=== PATIENT | female | born 2000 | race Two or more races ===

== ENCOUNTER 2023-11-05 09:11 | Outpatient (REF) | payer OTHER, SELFPAY ==
--- NOTE | ~2023-11-05 | US_ITS ---
EXAMINATION: US THYROID CLINICAL INFORMATION: Fatigue. COMPARISON: None available. TECHNIQUE: Linear transducer grayscale and color Doppler examination with attention to the region of the thyroid. FINDINGS: SIZE: Measurements of the thyroid lobes and nodules are given in sagittal, anteroposterior and transverse dimensions respectively. Right Thyroid Lobe: 4.4 x 2.1 x 1.2 cm, volume 5.8 mL. Parenchyma: The gland echotexture is homogeneous. Thyroid vascularity is normal. Left Thyroid Lobe: 4.5 x 1.8 x 1.5 cm, volume 6.4 mL. Parenchyma: The gland echotexture is homogeneous. Thyroid vascularity is normal. Isthmus: 0.33 cm in maximum AP dimension. Estimated total number of nodules greater than or equal to 1 cm: 1. Manager File nodules are described as follows: 1. Location: Right anterior/lateral. Size: 0.81 x 0.43 x 0.58 cm, volume 0.10 mL. Nodule characteristics: Composition: Cystic(0). ACR TI-RADS total points: 0. ACR TI-RADS category: 1. 2. Location: Left inferior/lateral. Size: 1.25 x 0.88 x 0.86 cm, volume 0.49 mL. Nodule characteristics: Composition: Solid (2). Echogenicity: Hypoechoic (2). Shape: Taller than wide (3). Margins: Smooth (0). Echogenic Foci: None (0). ACR TI-RADS total points: 7. ACR TI-RADS category: 5. NODES: No lymphadenopathy is seen in the tissue surrounding the thyroid gland. US/US thyroid IMPRESSION: 1.3 cm left TR5 thyroid nodule meets criteria for biopsy. Fine-needle aspiration recommended. This study was presented today 11/11/2023 for interpretation. PSA staff will provide results to referring provider at this time. ACR TI-RADS RECOMMENDATION REFERENCE: Ultrasound-guided fine-needle aspiration, followup ultrasound, no further follow up. * TR1 (0 point) and TR2 (2 points): No FNA or follow up. * TR3 (3 points): FNA if more than or equal to 2.5 cm in maximum dimension, followup ultrasound in 1, 3 and 5 years if 1.5 to 2.4 cm in maximum dimension. * TR4 (4-6 points): FNA if more than or equal to 1.5 cm in maximum dimension, followup ultrasound in 1, 2, 3 and 5 years if 1 to 1.4 cm in maximum dimension. * TR5 (more than or equal to 7 points): FNA if more than or equal to 1 cm in maximum dimension, followup ultrasound every year for 5 years if 0.5 to 0.9 cm in maximum dimension. * TR3, TR4 or TR5 nodules that are below the size threshold for followup receive no follow up.
== END 2023-11-05 09:12 | disposition home or self-care (01) ==
LOC: HO.UMASIMG 09:11
PROVIDERS: Visit Provider Nurse Practitioner
DX: R53.83 Other fatigue (principal)
CPT/HCPCS: 76536